=== PATIENT | male | born 1990 | race Caucasian/White ===

== ENCOUNTER 2018-07-13 20:35 | Emergency (ER) | payer OTHER ==
[2018-07-13 20:46] VITALS: BP 143/89; PULSE 72; TEMP 97.5; BMI 32.3
--- NOTE | 2018-07-13 22:04 | PDOC ---
History of Present Illness - General Chief Complaint: Eye Problem Stated Complaint: EYE PAIN Time Seen by Provider: 07/13/18 21:43 History Source: Patient Exam Limitations: Clinical Condition - History of Present Illness Initial Comments: 07/13/18 22:05 Patient with no significant past medical history present with complaint of one- week history of redness in bilateral eyes which yellow discharge and crusting upon wake. Patient reported redness that in left eye and moved to the right eye patient also reported small area of growth in right eye. Denies blurry vision, change in vision. Timing/Duration: 1 week Past History - Past Medical History Allergies/Adverse Reactions: Allergies Allergy/AdvReac Type Severity Reaction Status Date / Time No Known Allergies Allergy Verified 07/13/18 20:39 Home Medications: Ambulatory Orders Ofloxacin 0.3% Ophth Soln [Ocuflox -] 2 drop OU Q4H 5 Days #1 bottle 07/13/18 CVA: No COPD: No - Surgical History Abdominal Surgery: Yes (HERNIA REPAIR) - Suicide/Smoking/Psychosocial Hx Smoking History: Current some day smoker Number of Cigarettes Smoked Daily: 1 Information on smoking cessation initiated: No Hx Alcohol Use: Yes Drug/Substance Use Hx: No Review of Systems - Review of Systems Able to Perform ROS?: Yes Is the patient limited [place] proficient: No Constitutional: No: Weakness HEENTM: Yes: Symptoms Reported, See HPI, Eye Pain (b/l eyes), Tearing. No: Blurred Vision, Recent change in vision, Double Vision, Cataracts, Ear Pain, Ocular Prothesis, Ear Discharge, Nose Pain, Nose Congestion, Tinnitus, Nose Bleeding, Hearing Loss, Throat Pain, Throat Swelling, Mouth Pain, Dental Problems, Difficulty Swallowing, Mouth Swelling, Other Respiratory: No: Symptoms reported, See HPI, Cough, Orthopnea, Shortness of Breath, SOB with Exertion, SOB at Rest, Stridor, Wheezing, Productive cough, Hemoptysis, Other Cardiac (ROS): No: Symptoms Reported, See HPI, Chest Pain, Edema, Irregular Heart Rate, Lightheadedness, Palpitations, Syncope, Chest Tightness, Other ABD/GI: No: Nausea, Vomiting Neurological: No: Headache, Dizziness All Other Systems: Reviewed and Negative *Physical Exam - Vital Signs Last Vital Signs Temp Pulse Resp BP Pulse Ox 97.5 F L 72 16 143/89 96 07/13/18 20:36 07/13/18 20:36 07/13/18 20:36 07/13/18 20:36 07/13/18 20:36 - Physical Exam Comments: 07/13/18 22:11 GENERAL: Well developed, well nourished. Awake and alert. No acute distress. HEENT: moderately injected bilateral conjunctivae. No drainage or discharge from her eyes. small area of haziness to medial side of right cornea. Normocephalic, atraumatic. PERRLA, EOMI. Moist mucous membranes. Oropharynx is clear. NECK: Supple. Full ROM. CARDIOVASCULAR: Regular rate and rhythm. No murmurs, rubs, or gallops. PULMONARY: No evidence of respiratory distress. Lungs clear to auscultation bilaterally. No wheezing, rales or rhonchi. ABDOMINAL: Soft. Non-tender. Non-distended. No rebound or guarding. No organomegaly. Normoactive bowel sounds. MUSCULOSKELETAL Normal range of motion at all joints. SKIN: Warm and dry. Normal capillary refill. No rashes. NEUROLOGICAL: Alert, awake, appropriate. Gait is normal without ataxia. PSYCHIATRIC: Cooperative. Good eye contact. Appropriate mood General Appearance: Yes: Nourished, Appropriately Dressed. No: Apparent Distress Medical Decision Making - Medical Decision Making 07/13/18 22:06 Patient with no significant past medical history present with complaint of one- week history of redness in bilateral eyes which yellow discharge and crusting upon wake. Patient reported redness that in left eye and moved to the right eye patient also reported small area of growth in right eye. Denies blurry vision, change in vision. Exam significant for moderately injected bilateral conjunctivae. Small area of haziness to medial side of right cornea. Patient stable for discharge on ofloxacin ophthalmic drops with ophthalmology follow-up *DC/Admit/Observation/Transfer Diagnosis at time of Disposition: Conjunctivitis Qualifiers: Conjunctivitis type: acute Acute conjunctivitis type: unspecified Laterality: bilateral Qualified Code(s): H10.33 - Unspecified acute conjunctivitis, bilateral - Discharge Dispostion Disposition: HOME Condition at time of disposition: Stable Decision to Admit order: No - Prescriptions Prescriptions: Ofloxacin 0.3% Ophth Soln [Ocuflox -] 2 drop OU Q4H 5 Days #1 bottle - Referrals Referrals: Mukund Fisher MD [Staff Physician] - - Patient Instructions Printed Discharge Instructions: Conjunctivitis Additional Instructions: use drops as prescribed. Follow-up with referred cable splicer as soon as possible for growth in right eye - Post Discharge Activity
== END 2018-07-13 22:14 | disposition home or self-care (01) ==
LOC: JER 20:35 → JERFT 20:35
DX: H10.33 Unspecified acute conjunctivitis, bilateral (principal)
CPT/HCPCS: 99281-25

== ENCOUNTER 2024-02-08 13:54 | Emergency (ER) | payer OTHER ==
[2024-02-08 14:14] VITALS: BP 149/90; PULSE 79; RESP 18; TEMP 97.8; BMI 33.3
[2024-02-08] MEDS: IBUPROFEN 600 MG TABLET (FP) PO ONE (14:42)
[2024-02-08] MEDS ORDERED: IBUPROFEN 600 MG TABLET (FP) PO ONE ×2 (14:43→15:45)
[2024-02-08 18:41] LABS: HIV INTERPRETATION NEGATIVE (NEGATIVE)
== END 2024-02-08 15:56 | disposition home or self-care (01) ==
LOC: FER 13:54
DX: S63.501A Unspecified sprain of right wrist, initial encounter (principal); M54.2 Cervicalgia; V43.52XA Car driver injured in collision with other type car in traffic accident, initial encounter
CPT/HCPCS: 36415; 73110-TC-RT-FY; 73130-TC-RT-FY; 86803; 87389; 99284-25